=== PATIENT | female | born 1985 | race Caucasian/White ===

== ENCOUNTER 2017-03-12 12:31 | Emergency (ER) | payer OTHER ==
[~2017-03-12] VITALS: Ht 152.4 cm; Wt 90.0 kg
[~2017-03-12 12:31] MED LIST: CLON.5 PO; CLON0.5T PO; ESCI10TA PO; LEVO.025 PO; LEXA20TA PO; LISI-360 PO; RISP1TAB2 PO
[2017-03-12 12:33] VITALS: BP 165/80; PULSE 89; RESP 16; TEMP 99.1; O2SAT 99
[2017-03-12] MEDS ORDERED: ROBA500T PO (12:52)
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
[2017-03-12] MEDS ORDERED: CLON.5 PO (13:07)
[2017-03-12] MEDS ORDERED: LEVO25TA4 PO (13:07)
[2017-03-12] MEDS ORDERED: LEXA20TA PO (13:07)
[2017-03-12] MEDS ORDERED: ALPR.25 PO (13:08)
[2017-03-12] MEDS ORDERED: PROZ40CA PO (13:08)
[2017-03-12] MEDS ORDERED: BUPR150XL PO (13:08)
== END 2017-03-12 13:09 | disposition home or self-care (01) ==
LOC: NEPK 12:31
DX: S16.1XXA Strain of muscle, fascia and tendon at neck level, initial encounter (principal); F41.8 Other specified anxiety disorders; E03.9 Hypothyroidism, unspecified; V49.40XA Driver injured in collision with unspecified motor vehicles in traffic accident, initial encounter; Y92.9 Unspecified place or not applicable; Y99.9 Unspecified external cause status
CPT/HCPCS: 99283; L0150

== ENCOUNTER → 2017-09-18 | Outpatient (CLI) | payer OTHER ==
[~2017-09-18] MED LIST changes: +ALPR.25 PO; +BUPR150XL PO; -CLON0.5T PO; -ESCI10TA PO; -LEVO.025 PO; +LEVO25TA4 PO; -LISI-360 PO; +PROZ40CA PO; -RISP1TAB2 PO; +ROBA500T PO
== END ==
LOC: HPND 09:05
PROVIDERS: ATTEND Obstetrics & Gynecology
DX: O99.340 Other mental disorders complicating pregnancy, unspecified trimester (principal); O99.281 Endocrine, nutritional and metabolic diseases complicating pregnancy, first trimester; Z87.59 Personal history of other complications of pregnancy, childbirth and the puerperium; Z36.82 Encounter for antenatal screening for nuchal translucency
CPT/HCPCS: 36415; 76813

== ENCOUNTER → 2017-10-23 | Outpatient (CLI) | payer OTHER | LOC: HPND 08:41 | PROVIDERS: ATTEND Obstetrics & Gynecology | DX: O09.892 Supervision of other high risk pregnancies, second trimester (principal); O10.012 Pre-existing essential hypertension complicating pregnancy, second trimester; O99.282 Endocrine, nutritional and metabolic diseases complicating pregnancy, second trimester; O99.322 Drug use complicating pregnancy, second trimester; O99.342 Other mental disorders complicating pregnancy, second trimester; O99.212 Obesity complicating pregnancy, second trimester; E66.09 Other obesity due to excess calories; Z68.36 Body mass index [BMI] 36.0-36.9, adult | CPT/HCPCS: 76811 ==

== ENCOUNTER → 2017-11-27 | Outpatient (CLI) | payer BC, OTHER | LOC: HPND 09:10 | PROVIDERS: ATTEND Obstetrics & Gynecology | DX: O99.212 Obesity complicating pregnancy, second trimester (principal); O10.912 Unspecified pre-existing hypertension complicating pregnancy, second trimester; O99.342 Other mental disorders complicating pregnancy, second trimester | CPT/HCPCS: 76816; 76825; 76827; 93325 ==

== ENCOUNTER → 2017-12-31 | Outpatient (CLI) | payer BC | LOC: HPND 08:42 | PROVIDERS: ATTEND Obstetrics & Gynecology | DX: O10.012 Pre-existing essential hypertension complicating pregnancy, second trimester (principal); O99.342 Other mental disorders complicating pregnancy, second trimester; O09.292 Supervision of pregnancy with other poor reproductive or obstetric history, second trimester | CPT/HCPCS: 76816 ==

== ENCOUNTER 2018-02-09 20:10 | Emergency (ER) | payer BC ==
--- NOTE | 2018-02-09 21:48 | PD ---
HPI Chief Complaint Nausea vomiting and headache Date Seen: Feb 09, 2018 Time Seen: 21:38 Travel History International Travel<30 Days: No Contact w/Intl Traveler<30Days: No Known Affected Area: No History of Present Illness HPI 32-year-old 2 para 1 at 34 weeks gestation who reports having had intermittent nausea and diarrhea starting on Saturday. She reports 5-6 diarrhea stools today. She has vomited 2 or 3 times. She was seen by Dr. hernandez on Saturday and was prescribed Reglan which she has not gotten filled. She states she started to have a headache yesterday and was concerned that maybe she was developing preeclampsia. She denies any visual changes or abdominal pain. She thought she might have had some fluid leakage but denies any bleeding. She reports good movement. She took 325 mg of Tylenol this afternoon without relief. History Past Medical History Narrative Medical History of depression Hypothyroidism Obesity Obstetric History Obstetric History Prior complicated by preeclampsia at 36 weeks, delivered by section This has been, complicated by chronic hypertension, she has required no medication for this. She also has hypothyroidism which is well-controlled. Past Surgical History Narrative Surgical Knee surgery, , septoplasty Family History Family History: Negative Social History Alcohol Use: No Tobacco Use: No Substance Abuse: No Allergies-Medications (Allergen,Severity, Reaction): Coded Allergies: No Known Allergies (Unverified , 03/12/17) Home Meds Active Scripts Methocarbamol (Robaxin) 500 Mg Tab, 500 MG PO TID for Muscle Spasm, #21 TAB Prov:Sandip Hanson MD 03/12/17 Reported Medications Alprazolam (Xanax) 0.25 Mg Tab, 0.25 MG PO Q8H for ANXIETY, TAB 0 Refills 03/12/17 Bupropion HCl ER 24 HR (Wellbutrin Xl 24 HR) 150 Mg Tab, 150 MG PO DAILY for Control Depression, TAB 0 Refills 03/12/17 Fluoxetine (Prozac) 40 Mg Cap, 40 MG PO DAILY, #30 CAP 0 Refills 03/12/17 Levothyroxine (Levothyroxine) 25 Mcg Tab, 25 MCG PO DAILY for Thyroid, #30 TAB 0 Refills 03/12/17 Escitalopram (Lexapro) 20 Mg Tab, 20 MG PO DAILY, #30 TAB 0 Refills 03/12/17 Clonazepam (Klonopin) 0.5 Mg Tab, 0.5 MG PO HS, #60 TAB 0 Refills 03/12/17 Review of Systems Except as stated in HPI: all other systems reviewed are Neg Physical Exam Narrative GENERAL: Well-nourished, well-developed patient. SKIN: Warm and dry. HEAD: Normocephalic and atraumatic. EYES: No scleral icterus. No injection or drainage. ENT: No nasal drainage noted. Mucous membranes pink. Airway patent. NECK: Supple, trachea midline. No JVD. CARDIOVASCULAR: Regular rate and rhythm without murmurs, gallops, or rubs. RESPIRATORY: Breath sounds equal bilaterally. No accessory muscle use. ABDOMEN/GI: Abdomen soft, non-tender, bowel sounds present, no rebound, no guarding Gravid to [-] weeks size Fundal Height: [-] GENITOURINARY: External Genitalia: intact and normal in appearance BUS glands: [-] Cervix: [-] Dilatation: [-Closed] Effacement: [-Long] Station: [-High] Presentation: [-] Membranes: [intact by amnisure] Uterine Contractions: [-Irritable] FHT's: Category: [-] Baseline: [-] Reactive: [-Yes] Variability: [-] Decels: [-] EXTREMITIES: No cyanosis or edema. BACK: Nontender without obvious deformity. No CVA tenderness. NEUROLOGICAL: Awake and alert. Motor and sensory grossly within normal limits. Five out of 5 muscle strength in all muscle groups. Normal speech. Data Data Vital Signs Reviewed: Yes MDM Medical Record Reviewed: Yes Narrative Course / MDM Assessment: 34 week intrauterine with nausea vomiting and headache Plan: We discussed continued efforts at hydration. I recommended that she get her prescription filled for the Reglan as recommended by Dr. hernandez. We discussed Lomotil if she is having more than 6 diarrhea stools per day. Increase Tylenol dosing to therapeutic level. She has follow-up with Dr. hernandez tomorrow. Diagnosis Diagnosis: Primary Impression: 34 weeks gestation of Additional Impressions: Nausea/vomiting in Headache Disposition: 01 DISCHARGE HOME Condition: Good Lucio Lynn MD Feb 09, 2018 21:48
== END 2018-02-09 22:11 | disposition home or self-care (01) ==
LOC: HOBED 20:10
DX: O21.9 Vomiting of pregnancy, unspecified (principal); O26.893 Other specified pregnancy related conditions, third trimester; R51 Headache; Z3A.34 34 weeks gestation of pregnancy
CPT/HCPCS: 59025; 84112

== ENCOUNTER 2018-02-13 16:53 | Inpatient (IN) | payer BC ==
[~2018-02-13 16:53] MED LIST changes: +DEXAMETHASONE SOD PHOS 4 MG/ML VIAL IV ONE; +KETOROLAC TROMETHAMINE 30 MG/ML (IVP) VIAL IV PUSH ONE; +LABETALOL HCL 100 MG/20 ML VIAL IV ONE; +LACTATED RINGER'S 1000 ML INJ 1,000 ML IV ONE; +ONDANSETRON HCL 4 MG/2 ML VIAL IV ONE; +OXYTOCIN 10 UNIT/ML AMP IV ONE; +PHENYLEPH/NS 1000 MCG/10 ML SYR IV ONE; +ceFAZolin INJ 1,000 MG VIAL IV ONE
[2018-02-13] MEDS: LACTATED RINGER'S 1000 ML INJ 1,000 ML IV SCH ×3 (17:00→22:00)
[2018-02-13] MEDS ORDERED: ADDE30XR PO (18:11)
[2018-02-13] MEDS ORDERED: LABE100T2 PO (18:11)
[2018-02-13] MEDS ORDERED: REGL10TA5 PO (18:11)
[2018-02-13] MEDS ORDERED: OXYTOCIN 30 UNITS-500ML PREMIX 500 ML IV PRN (18:15)
[2018-02-13 18:29] LABS: AUTOMATED NEUTROPHIL # 7.5 TH/MM3 (1.8-7.7); BASOPHIL % 0.1 % (0.0-2.0); EOSINOPHIL % 0.4 % (0.0-4.0); HEMATOCRIT 34.9 % (35.0-46.0); HEMOGLOBIN 11.8 GM/DL (11.6-15.3); LYMPH % 22.8 % (9.0-44.0); LYMPHOCYTE # 2.4 TH/MM3 (1.0-4.8); MEAN CELL VOLUME 84.2 FL (80.0-100.0); MEAN CORPUSCULAR HEMOGLOBIN 28.6 PG (27.0-34.0); MEAN CORPUSCULAR HGB CONC 33.9 % (32.0-36.0); MEAN PLATELET VOLUME 8.5 FL (7.0-11.0); MONO % 6.3 % (0.0-8.0); MONOCYTE # 0.7 TH/MM3 (0-0.9); NEUT % 70.4 % (16.0-70.0); PLATELET COUNT 242 TH/MM3 (150-450); RED BLOOD COUNT 4.14 MIL/MM3 (4.00-5.30); RED CELL DISTRIBUTION WIDTH 14.2 % (11.6-17.2); WHITE BLOOD COUNT 10.7 TH/MM3 (4.0-11.0)
[2018-02-13 18:34] LABS: BACTERIA, URINE MANY /hpf; BILIRUBIN, URINE NEG (NEG); BLOOD, URINE NEG (NEG); GLUCOSE,URINE NEG (NEG); KETONE, URINE NEG (NEG); MUCUS URINE FEW /lpf (OCC); NITRITE,URINE NEG (NEG); SQUAMOUS EPITHELIAL CELL URINE 1 /hpf (0-5); URINE COLOR YELLOW (YELLW/STRAW); URINE LEUKOCYTE ESTERASE NEG (NEG)
[2018-02-13] MEDS ORDERED: ACETAMINOPHEN 1000 MG/100 ML 100 ML IV ONE (19:45)
[2018-02-13 19:48] LABS: ALBUMIN 2.6 GM/DL (3.4-5.0); DIRECT BILIRUBIN ADULT 0.1 MG/DL (0.0-0.2)
[2018-02-13 19:49] LABS: CHOLESTEROL/ HDL RATIO 2.75 RATIO; HDL CHOLESTEROL 93.5 MG/DL (40.0-60.0); INDIRECT BILIRUBIN 0.1 MG/DL (0.0-0.8); TOTAL BILIRUBIN ADULT 0.2 MG/DL (0.2-1.0); TOTAL PROTEIN 6.7 GM/DL (6.4-8.2)
[2018-02-13 20:00] VITALS: RESP 18; TEMP 98.1
[2018-02-13] MEDS ORDERED: LACTATED RINGER'S 1000 ML INJ 1,000 ML IV ONE (21:05)
[2018-02-13] MEDS ORDERED: MAGNESIUM SULFATE 40 GM PREMIX 1,000 ML IV SCH (21:08)
[2018-02-13] MEDS ORDERED: KETOROLAC TROMETHAMINE 30 MG/ML (IVP) VIAL IV PUSH PRN (21:15)
[2018-02-13] MEDS ORDERED: SIMETHICONE 80 MG CHEWABLE TAB PO PRN (21:15)
[2018-02-13] MEDS ORDERED: ONDANSETRON HCL 4 MG/2 ML VIAL IVP PRN (21:15)
[2018-02-13] MEDS ORDERED: SODIUM CHLORIDE 0.9% FLUSH 10 ML FLUSH IV FLUSH PRN (21:15)
[2018-02-13] MEDS ORDERED: MEASLES, MUMPS, RUBELLA VACCINE 0.5 ML VIAL SQ ONE (21:15)
[2018-02-13] MEDS ORDERED: ZOLPIDEM TARTRATE 5 MG TAB PO PRN (21:15)
[2018-02-13] MEDS ORDERED: CALCIUM GLUCONATE 10% 1 GM/10 ML VIAL IV PUSH PRN (21:15)
[2018-02-13] MEDS ORDERED: LABETALOL HCL 100 MG/20 ML VIAL IV PUSH PRN ×3 (21:15→21:30)
[2018-02-13] MEDS ORDERED: MAGNESIUM SULFATE 4 GM PREMIX 100 ML IV ONE (21:15)
[2018-02-13] MEDS ORDERED: KETOROLAC TROMETHAMINE 60 MG/2 ML (IM) VIAL IM PRN (21:15)
[2018-02-13] MEDS ORDERED: DOCUSATE SODIUM 50 MG/SENNA 8.6 MG TAB PO PRN (21:15)
[2018-02-13] MEDS ORDERED: OXYTOCIN 30 UNITS-500ML PREMIX 500 ML IV ONE (21:15)
[2018-02-13] MEDS ORDERED: oxyCODONE/ACETAMINOPHEN 5 MG/325 MG TAB PO PRN (21:15)
[2018-02-13] MEDS: ACETAMINOPHEN 1000 MG/100 ML VIAL IV SCH (22:00)
[2018-02-13] MEDS ORDERED: ACETAMINOPHEN 1000 MG/100 ML 0 ML IV ONE (22:02)
[2018-02-13] MEDS ORDERED: MORPHINE SULFATE PF 5 MG/10 ML VIAL ONE (22:02)
[2018-02-13] MEDS ORDERED: ceFAZolin 2 GM PREMIX 50 ML IV SCH (22:15)
[2018-02-13] MEDS ORDERED: CEFAZOLIN INJ 2,000 MG in SODIUM CHLORIDE 0.9% INJ 100 ML IV SCH (22:30)
[2018-02-13] MEDS ORDERED: CITRIC ACID-SODIUM CITRATE LIQ 30 ML UDC PO SCH (22:45)
[2018-02-13] MEDS ORDERED: EPIDURAL-NALOXONE HCL 0.4 MG/ML AMP IV PUSH PRN (23:00)
[2018-02-13] MEDS ORDERED: EPIDURAL-DIPHENHYDRAMINE HCL 50 MG CAP PO PRN (23:00)
[2018-02-13] MEDS ORDERED: EPIDURAL-DO NOT ADMINISTER ANTICOAGULANTS PRN (23:00)
[2018-02-13] MEDS ORDERED: EPIDURAL-NO SYSTEMIC NARCOTICS PRN (23:00)
[2018-02-13] MEDS ORDERED: EPIDURAL-DIPHENHYDRAMINE HCL 50 MG/ML VIAL IV PUSH PRN (23:00)
[2018-02-14] VITALS (24 sets, daily range): BP systolic 103–151; BP diastolic 48–81; PULSE 85–120; RESP 18–20; TEMP 97.6–98.5; O2SAT 97–99
[2018-02-14] MEDS ORDERED: MAGNESIUM SULFATE 40 GM PREMIX 1,000 ML ONE (00:05)
[2018-02-14] MEDS: LACTATED RINGER'S 1000 ML INJ 1,000 ML IV SCH ×8 (01:44→23:48)
[2018-02-14 06:00] LABS: AUTOMATED NEUTROPHIL # 14.4 TH/MM3 (1.8-7.7); BASOPHIL % 0.3 % (0.0-2.0); HEMATOCRIT 33.5 % (35.0-46.0); HEMOGLOBIN 11.1 GM/DL (11.6-15.3); LYMPHOCYTE # 1.5 TH/MM3 (1.0-4.8); MEAN CELL VOLUME 84.3 FL (80.0-100.0); MEAN CORPUSCULAR HEMOGLOBIN 27.8 PG (27.0-34.0); MEAN PLATELET VOLUME 8.5 FL (7.0-11.0); MONO % 4.2 % (0.0-8.0); MONOCYTE # 0.7 TH/MM3 (0-0.9); NEUT % 86.5 % (16.0-70.0); PLATELET COUNT 250 TH/MM3 (150-450); RED BLOOD COUNT 3.97 MIL/MM3 (4.00-5.30); RED CELL DISTRIBUTION WIDTH 14.2 % (11.6-17.2); WHITE BLOOD COUNT 16.7 TH/MM3 (4.0-11.0)
[2018-02-14] MEDS: LEVOTHYROXINE SODIUM 25 MCG TAB PO SCH (06:00)
[2018-02-14] MEDS: ACETAMINOPHEN 1000 MG/100 ML VIAL IV SCH ×2 (06:00→14:00)
[2018-02-14 06:23] LABS: BICARBONATE 23.9 MEQ/L (21.0-32.0); CALCIUM 8.3 MG/DL (8.5-10.1); CREATININE 0.57 MG/DL (0.50-1.00); MAGNESIUM 3.7 MG/DL (1.5-2.5)
--- NOTE | 2018-02-14 07:51 | HHI.OB ---
Subjective Post Operative Day: 1 Remarks POD # 1 s/p repeat c/s at 35 wks due to severe preeclampsia with severe headache doing well today...good pain control, no further headache, no SOB Objective Vitals/I&O Vital Signs Date Time Temp Pulse Resp B/P (MAP) Pulse Ox O2 Delivery O2 Flow Rate FiO2 02/14/18 07:00 90 113/63 (80) 02/14/18 06:00 90 119/65 (83) 02/14/18 05:00 86 136/67 (90) 02/14/18 04:00 97 140/69 (92) 02/14/18 03:00 91 138/81 (100) 02/14/18 02:00 86 137/73 (94) 02/14/18 02:00 98.2 18 02/14/18 01:50 87 135/70 (91) 02/14/18 01:01 86 18 130/60 (83) 97 02/14/18 00:51 89 138/68 (91) 02/14/18 00:51 18 97 02/14/18 00:34 89 18 129/65 (86) 97 02/14/18 00:23 90 18 128/78 (95) 97 02/14/18 00:15 92 18 138/73 (94) 99 02/14/18 00:00 98.4 120 20 97 02/14/18 00:00 151/81 (104) 02/13/18 20:00 98.1 18 Result Diagram: 02/14/18 0453 02/14/18 0453 Objective Remarks GENERAL: Well-nourished, well-developed patient. CARDIOVASCULAR: Regular rate and rhythm without murmurs, gallops, or rubs. RESPIRATORY: Breath sounds equal bilaterally. No accessory muscle use. ABDOMEN/GI: Abdomen soft, non-tender, bowel sounds present. Incision: Clean, dry and intact. Fundus: Firm, non-tender at umbilicus. GENITOURINARY: Light to moderate bleeding. EXTREMITIES: No cyanosis or edema, non-tender, without signs of DVT. Medications and IVs Current Medications Medications (Trade) Dose Ordered Sig/Kristina Route Start Time Stop Time Status Last Admin Lactated Ringer's 1,000 ml @ 125 mls/hr Q8H IV 02/13/18 17:00 02/13/18 17:00 Lactated Ringer's 1,000 ml @ 150 mls/hr Q6H40M IV 02/13/18 21:35 (Bicitra Liq) 30 ml MOLD PREPARER PO 02/13/18 22:45 02/17/18 22:44 Lactated Ringer's 1,000 ml @ 100 mls/hr Q10H IV 02/13/18 13:04 02/14/18 09:03 02/13/18 22:00 Oxytocin 500 ml @ 100 mls/hr UNSCH X1 PRN IV 02/13/18 18:15 02/14/18 18:14 (Mylicon Chew) 80 mg QID PRN PO 02/13/18 21:15 (Ofirmev 1000 Mg/ 100 ml Inj) 1,000 mg Q8H IV 02/13/18 22:00 02/14/18 14:01 02/14/18 06:00 (Motrin) 600 mg Q6H PRN PO 02/13/18 21:15 (Toradol Inj) 60 mg UNSCH X1 PRN IM 02/13/18 21:15 02/14/18 21:14 (Percocet 5-325 Mg) 1 tab Q4H PRN PO 02/13/18 21:15 (Percocet 5-325 Mg) 2 tab Q4H PRN PO 02/13/18 21:15 (Adelaide-Colace) 2 tab Q12H PRN PO 02/13/18 21:15 (Ambien) 5 mg HS PRN PO 02/13/18 21:15 (Boostrix Inj) 0.5 ml ONCE ONCE IM 02/15/18 09:00 02/15/18 09:01 (Zofran Inj) 4 mg Q6H PRN IVP 02/13/18 21:15 Lactated Ringer's 1,000 ml @ 75 mls/hr [id number] IV 02/13/18 21:08 02/14/18 01:44 (NS Flush) 2 ml UNSCH PRN IV FLUSH 02/13/18 21:15 (NS Flush) 2 ml BID IV FLUSH 02/14/18 09:00 Magnesium Sulfate 1,000 ml @ 50 mls/hr Q20H IV 02/13/18 21:08 02/14/18 01:43 (Trandate Inj) 20 mg NOW PRN IV PUSH 02/13/18 21:15 02/14/18 21:14 (Trandate Inj) 40 mg NOW PRN IV PUSH 02/13/18 21:30 02/14/18 21:29 (Trandate Inj) 80 mg NOW PRN IV PUSH 02/13/18 21:30 02/14/18 21:29 (Calcium Gluconate Inj) 1 gm UNSCH PRN IV PUSH 02/13/18 21:15 (Toradol Inj) 30 mg Q6H PRN IV PUSH 02/13/18 21:15 02/15/18 21:00 Cefazolin Sodium 2000 mg/Sodium Chloride 120 ml @ 100 mls/hr MOLD PREPARER IV 02/13/18 22:30 02/15/18 22:29 Miscellaneous Information NO SYSTEMIC NARCOTICS TO BE GIVEN FO... UNSCH PRN .XX 02/13/18 23:00 02/14/18 22:59 (Narcan Inj) 0.4 mg UNSCH PRN IV PUSH 02/13/18 23:00 02/14/18 22:59 (Benadryl Inj) 25 mg Q6H PRN IV PUSH 02/13/18 23:00 02/14/18 22:59 (Benadryl) 50 mg Q6H PRN PO 02/13/18 23:00 02/14/18 22:59 Miscellaneous Information ALL NURSING DEPARTMENTS UNSCH PRN .XX 02/13/18 23:00 02/14/18 22:59 (PROzac) 40 mg DAILY PO 02/14/18 09:00 (Synthroid) 25 mcg DAILY@0600 PO 02/14/18 06:00 (Trandate) 100 mg BID PO 02/14/18 09:00 (Wellbutrin Sr) 150 mg DAILY PO 02/14/18 09:00 Assessment/Plan Assessment and Plan POD # 1 s/p repeat c/s doing well with good UOP and good BP, nl labs 1. routine care 2. DC mag this evening Darcie Crespo MD Feb 14, 2018 07:51
--- NOTE | 2018-02-14 07:59 | MH ---
cc: Ever Chand MD DATE OF ADMISSION: 02/13/2018 ADMITTING DIAGNOSIS: 1. at 34-35 weeks. 2. -induced hypertension, possible severe preeclampsia. 3. Previous section. HISTORY OF PRESENT ILLNESS: The patient is a 31-year-old white female, para 0-1-0-1, with LMP of 06/15/2017, EDC of 03/22/2018. The patient has been doing well until she presented on 02/07/2018, when she presented with blood pressure 130/90. She was placed on bedrest and returned for a BPP on 02/10/2018, with no improvement in blood pressure. Begun on labetalol 100 mg p.o. b.i.d. and bedrest. Her PIH labs from 02/07/2018 were normal. She returned today with a severe headache refractory to Tylenol, rest and fluids. Her blood pressure is 160/98. Her ultrasound today shows a vertex presentation, normal fluid, EFW of 3039 grams. She is now admitted for evaluation and possible delivery. PAST MEDICAL HISTORY: In 11/2017, she had laparoscopy with coagulation necrosis and cyst aspiration. She had a 01/2016 for severe preeclampsia at 36 weeks. She has history of anxiety disorder with severe depression that has responded well to medical therapy, history of hypothyroid. SOCIAL HISTORY: She is , homemaker. Alcohol, tobacco and drugs are none. FAMILY HISTORY: Noncontributory. MEDICATIONS: Include baby aspirin, Prozac 40 mg daily, Wellbutrin 150 mg daily, levothyroxine 20 mcg daily and vitamins. PHYSICAL EXAMINATION: GENERAL: This is a well-nourished, well-developed white female. HEENT: Shows facial edema. EXTREMITIES: Normal. CHEST: Clear. CARDIOVASCULAR: Regular rate. BREASTS: Symmetrical. ABDOMEN, PELVIC: Is gravid. EFW is 3000 grams. Cervix closed. EXTREMITIES: 1+ edema. Reflexes 2+ and equal. ASSESSMENT AND PLAN: As above. She is now admitted for evaluation, laboratory studies. If blood pressure and headache fail to respond with observation, we will proceed to repeat section. MD MILAGROS Singleton/PUNEET , 05:16 PM , 06:32 PM SASCHA
[2018-02-14] MEDS: oxyCODONE/ACETAMINOPHEN 5 MG/325 MG TAB PO PRN ×2 (08:41→16:09)
[2018-02-14] MEDS ORDERED: buPROPion HCL 75 MG TAB PO SCH (09:00)
[2018-02-14] MEDS: FLUoxetine HCL 20 MG CAP PO SCH (09:00)
[2018-02-14] MEDS: LABETALOL HCL 100 MG TAB PO SCH ×2 (09:00→21:00)
[2018-02-14] MEDS: SODIUM CHLORIDE 0.9% FLUSH 10 ML FLUSH IV FLUSH SCH ×2 (09:00→23:00)
[2018-02-14] MEDS: buPROPion HCL 150 MG SUSTAINED RELEASE TAB PO SCH (09:00)
--- NOTE | 2018-02-14 09:15 | MP ---
cc: Ever Chand MD DATE OF OPERATION: 02/13/2018 PREOPERATIVE DIAGNOSES: 1. at 34-35 weeks. 2. Severe preeclampsia. 3. Previous section. 4. Multiparity. POSTOPERATIVE DIAGNOSES: 1. at 34-35 weeks. 2. Severe preeclampsia. 3. Previous section. 4. Multiparity. 5. Delivered. PROCEDURE PERFORMED: Repeat low transverse section and bilateral tubal interruption. ANESTHESIA: Spinal. SURGEON: Ever Chand MD SYSTEM SOFTWARE DEVELOPER: Shirley Braxton. ESTIMATED BLOOD LOSS FOR PROCEDURE: 600 mL FLUIDS: 2.4 liters crystalloid. OBJECTIVE FINDINGS: Following induction of adequate spinal anesthesia, the patient was prepped and draped supine on the operating table in left lateral tilt position, usual sterile fashion, with the bladder being drained by Barajas catheterization. The abdomen was opened through a Pfannenstiel incision using knife to excise her old scar. The fascia opened transversely, stripped from the muscles, rectus muscle split in the midline and the peritoneum opened sharply without incident. The bladder flap was taken down sharply, retracted with the [place] blade. The lower uterine segment was incised transverse with a knife, extended with blunt dissection. Membranes with clear fluid. The baby was delivered with oxygen plant operator guidance and fundal pressure. Mouth suctioned. Nuchal cord reduced. Delayed cord clamp done. The baby passed to claudia team. A vigorous female, Apgars were 5, 7, and 9. Cord was kept for typing. The placenta removed manually, and the uterine cavity wiped clean with laps. Uterus exteriorized and closed in 2 layers running suture, first a running locking stitch of 0 Vicryl, second with running imbricating stitch of 0 Vicryl. Posterior inspection was normal. Tubes and ovaries were normal. The patient reaffirms her desire for tubal. Left fallopian tube was traced to the fimbria. A window made in the mesosalpinx of the fimbria with the Bovie. The vascular pedicle of fimbria clamped with 2 Kellys. The distal tube with hemostat. The distal tube and fimbria excised with scissors. The vascular pedicle of fimbria was ligated with 2 free ties of 2-0 chromic. The proximal tube with 2-0 chromic and buried in Jim fashion with a second suture of 2-0 chromic used to further fix the tube to the fundus, the same on the right. The uterus was replaced in the cavity. Irrigation performed. Areas of bleeding along the suture line were controlled with 2-0 and 3-0 chromic. The lower segment was then coated with Claudia and the bladder flap closed with running 3-0 Vicryl. Tubal sites inspected. They were intact, with no bleeding. All retractors were removed. Counts were correct. The anterior peritoneum closed with a running stitch of 2-0 Vicryl. The fascia closed with a running locking stitch of 0 Vicryl, corners to midline, tied. Subcutaneous closed with 3-0 Vicryl and the skin with a running subcuticular 3-0 Monocryl. Dermabond applied. All counts were correct and the patient was awakened and taken to the recovery room in good condition. MD MILAGROS Singleton/rt , 11:53 PM , 12:16 AM SASCHA
[2018-02-14] MEDS: IBUPROFEN 600 MG TAB PO PRN ×2 (10:54→16:08)
[2018-02-15] MEDS: LACTATED RINGER'S 1000 ML INJ 1,000 ML IV SCH ×2 (00:15→01:00)
[2018-02-15] MEDS: IBUPROFEN 600 MG TAB PO PRN ×3 (03:17→22:35)
[2018-02-15] MEDS: oxyCODONE/ACETAMINOPHEN 5 MG/325 MG TAB PO PRN ×4 (03:17→22:35)
[2018-02-15 04:30] VITALS: RESP 16
[2018-02-15] MEDS: LEVOTHYROXINE SODIUM 25 MCG TAB PO SCH (06:20)
[2018-02-15] MEDS: FLUoxetine HCL 20 MG CAP PO SCH (09:00)
[2018-02-15] MEDS: LABETALOL HCL 100 MG TAB PO SCH ×2 (09:00→21:00)
[2018-02-15] MEDS: buPROPion HCL 150 MG SUSTAINED RELEASE TAB PO SCH (09:00)
[2018-02-15] MEDS ORDERED: DIPHTH/TETANUS/ACEL PERTUSSIS (BOOSTER) 0.5 ML VIAL/PFS IM ONE (09:00)
[2018-02-16] MEDS: IBUPROFEN 600 MG TAB PO PRN ×2 (05:22→11:16)
[2018-02-16] MEDS: LEVOTHYROXINE SODIUM 25 MCG TAB PO SCH (05:22)
[2018-02-16] MEDS: oxyCODONE/ACETAMINOPHEN 5 MG/325 MG TAB PO PRN ×2 (05:22→11:16)
--- NOTE | 2018-02-16 07:18 | HHI.OB ---
Subjective Post Day: 3 Remarks doing well Objective Objective Remarks GENERAL: Well-nourished, well-developed patient. ABDOMEN/GI: Abdomen soft, non-tender. Fundus: Firm, non-tender at umbilicus. GENITOURINARY: Light to moderate bleeding. EXTREMITIES: No cyanosis or edema, non-tender, without signs of DVT. Medications and IVs Current Medications Medications (Trade) Dose Ordered Sig/Kristina Route Start Time Stop Time Status Last Admin Lactated Ringer's 1,000 ml @ 125 mls/hr Q8H IV 02/13/18 17:00 02/13/18 17:00 Lactated Ringer's 1,000 ml @ 150 mls/hr Q6H40M IV 02/13/18 21:35 (Bicitra Liq) 30 ml CASTING AGENT PO 02/13/18 22:45 02/17/18 22:44 (Mylicon Chew) 80 mg QID PRN PO 02/13/18 21:15 (Motrin) 600 mg Q6H PRN PO 02/13/18 21:15 02/16/18 05:22 (Percocet 5-325 Mg) 1 tab Q4H PRN PO 02/13/18 21:15 02/15/18 13:19 (Percocet 5-325 Mg) 2 tab Q4H PRN PO 02/13/18 21:15 02/16/18 05:22 (Adelaide-Colace) 2 tab Q12H PRN PO 02/13/18 21:15 (Ambien) 5 mg HS PRN PO 02/13/18 21:15 (Zofran Inj) 4 mg Q6H PRN IVP 02/13/18 21:15 Lactated Ringer's 1,000 ml @ 75 mls/hr [id number] IV 02/13/18 21:08 02/14/18 10:28 (NS Flush) 2 ml UNSCH PRN IV FLUSH 02/13/18 21:15 (NS Flush) 2 ml BID IV FLUSH 02/14/18 09:00 02/14/18 23:00 Magnesium Sulfate 1,000 ml @ 50 mls/hr Q20H IV 02/13/18 21:08 02/14/18 01:43 (Calcium Gluconate Inj) 1 gm UNSCH PRN IV PUSH 02/13/18 21:15 (PROzac) 40 mg DAILY PO 02/14/18 09:00 (Synthroid) 25 mcg DAILY@0600 PO 02/14/18 06:00 02/16/18 05:22 (Trandate) 100 mg BID PO 02/14/18 09:00 (Wellbutrin Sr) 150 mg DAILY PO 02/14/18 09:00 Assessment/Plan Assessment and Plan POD # 3 s/p repeat c/s doing well with good UOP and good BP, nl labs 1. routine care 2. [facility],Ever Bartlett MD Feb 16, 2018 07:18
[2018-02-16] MEDS ORDERED: OXYC1TAB63 PO (07:19)
--- NOTE | 2018-02-16 07:19 | HHI.DCPOC ---
Discharge Care Plan Diagnosis: (1) Delivered by section Report Symptoms to Your Doctor -Temperature above 100.5 degrees -Redness, of incision or excessive or foul smelling drainage -Unusual pain or calf pain -Increased vaginal bleeding -Painful or difficulty urinating -Feelings of extreme sadness or anxiety after 2 weeks Goals to Promote Your Health * To prevent worsening of your condition and complications * To maintain your health at the optimal level Directions to Meet Your Goals Take your medications as prescribed Follow your dietary instruction Follow activity as directed Ensure plenty of rest for recovery Drink fluids for hydration Keep your appointments as scheduled Take your immunizations and boosters as scheduled If your symptoms worsen call your PCP, if no PCP go to Urgent Care Center or Emergency Room Smoking is Dangerous to Your Health. Avoid second hand smoke Call the 24-hour crisis hotline for domestic abuse at Ever Renee MD Feb 16, 2018 07:19
--- NOTE | 2018-02-16 07:24 | HHI.DS ---
Admission Date Feb 13, 2018 at 16:53 Discharge Date: Feb 16, 2018 Admitting Diagnosis Diagnosis: (1) Pre-eclampsia added to pre-existing hypertension Diagnosis: Principal ICD Codes: O11.9 - Pre-existing hypertension with pre-eclampsia, unspecified trimester (2) Adjustment disorder with depressed mood Diagnosis: Principal ICD Codes: F43.21 - Adjustment disorder with depressed mood Status: Acute Delivery Date: Feb 13, 2018 : Primary, Repeat : Single Brief History patient at 34 weeks with severe headache and Dr Chand diagnosed with preeclampsia Hospital Course CS performed doing well without complaints Pt Condition on Discharge: Good Discharge Disposition: Discharge Home Discharge Instructions Diet Instructions: As Tolerated, No Restrictions Activities You Can Perform: Pelvic Rest Follow up Referrals: VOICE COACH - 2 Weeks @ [facility] with Ever Renee MD New Medications: Oxycodone HCl/Acetaminophen (Oxycodone-Acetaminophen 5-325) 5 Mg-325 Mg Tablet 1 TAB PO Q4H PRN for PAIN SCALE 1 TO 4, #30 TAB Continued Medications: Alprazolam (Xanax) 0.25 Mg Tab 0.25 MG PO Q8H for ANXIETY, TAB 0 Refills Amphetamine-Dextroamphetamine ER 24 HR (Adderall Xr 24 HR) 30 Mg Cap 30 MG PO DAILY for Hyperactivity Control, #30 CAP 0 Refills Once daily in the morning. Bupropion HCl ER 24 HR (Wellbutrin Xl 24 HR) 150 Mg Tab 150 MG PO DAILY for Control Depression, TAB 0 Refills Clonazepam (Klonopin) 0.5 Mg Tab 0.5 MG PO HS, #60 TAB 0 Refills Escitalopram (Lexapro) 20 Mg Tab 20 MG PO DAILY, #30 TAB 0 Refills Fluoxetine (Prozac) 40 Mg Cap 40 MG PO DAILY, #30 CAP 0 Refills Labetalol (Labetalol) 100 Mg Tab 100 MG PO BID for Blood Pressure Management, TAB 0 Refills Levothyroxine (Levothyroxine) 25 Mcg Tab 25 MCG PO DAILY for Thyroid, #30 TAB 0 Refills Methocarbamol (Robaxin) 500 Mg Tab 500 MG PO TID for Muscle Spasm, #21 TAB Metoclopramide (Reglan) 10 Mg Tab 10 MG PO TIDAC, TAB 0 Refills Ever Renee MD Feb 16, 2018 07:24
[2018-02-16] MEDS: LABETALOL HCL 100 MG TAB PO SCH (10:13)
[2018-02-16] MEDS: buPROPion HCL 150 MG SUSTAINED RELEASE TAB PO SCH (10:14)
[2018-02-16] MEDS: FLUoxetine HCL 20 MG CAP PO SCH (10:14)
== END 2018-02-16 15:41 | disposition home or self-care (01) | DRG 766 ==
LOC: H2EA 16:53 → OBSVTOIN 16:53 → H1EA 02-15 16:10
PROVIDERS: ADMIT Obstetrics & Gynecology; ATTEND Obstetrics & Gynecology
PROC: 10D00Z1 Extraction of Products of Conception, Low, Open Approach (ICD-10-PCS; principal; 2018-02-13)
PROC: 0UB70ZZ Excision of Bilateral Fallopian Tubes, Open Approach (ICD-10-PCS; 2018-02-13)
PROC: 3E0P05Z Introduction of Adhesion Barrier into Female Reproductive, Open Approach (ICD-10-PCS; 2018-02-13)
DX: O14.14 Severe pre-eclampsia complicating childbirth (principal); E03.9 Hypothyroidism, unspecified; Z37.0 Single live birth; O99.344 Other mental disorders complicating childbirth; O99.284 Endocrine, nutritional and metabolic diseases complicating childbirth; O34.211 Maternal care for low transverse scar from previous cesarean delivery; Z3A.34 34 weeks gestation of pregnancy; Z30.2 Encounter for sterilization; O69.81X0 Labor and delivery complicated by cord around neck, without compression, not applicable or unspecified; F43.21 Adjustment disorder with depressed mood
CPT/HCPCS: 59025; 80048; 80061; 80076; 80307; 81001; 83735; 84550; 85025; 86850; 86900; 86901; 87086; 88302; 90715; G0481; J0131; J0690; J1100; J1885; J2274; J2370; J2405; J2590; J3010; J3475; J7120